=== PATIENT | male | born 1950 | race Caucasian/White ===

== ENCOUNTER 2017-11-18 09:39 | Inpatient (IN) | payer OTHER, MEDICARE ==
[2017-11-21] MEDS ORDERED: GABAPENTIN 300 MG CAP PO ONE (06:20)
[2017-11-21] MEDS ORDERED: ACETAMINOPHEN 500 MG TAB PO ONE (06:20)
[2017-11-21] MEDS ORDERED: ceFAZolin 2 GM/SWFI 2 GM/20 ML SYR IVP ONE (06:20)
[2017-11-21] MEDS ORDERED: LR 1,000 ML IV ONE (06:21)
[2017-11-21] MEDS ORDERED: MIDAZOLAM 2 MG/2 ML VIAL IVP ONE (06:57)
--- NOTE | 2017-11-21 06:57 | PDANEPAE ---
ANE History of Present Illness 67 yo crani ANE Past Medical History - Cardiovascular History Hx Hypertension: No Hx Arrhythmias: No Hx Chest Pain: No Hx Coronary Artery / Peripheral Vascular Disease: No Hx CHF / Valvular Disease: No Hx Palpitations: No - Pulmonary History Hx COPD: No Hx Asthma/Reactive Airway Disease: Yes Hx Recent Upper Respiratory Infection: No Hx Oxygen in Use at Home: No Hx Sleep Apnea: No Sleep Apnea Screening Result - Last Documented: Negative Pulmonary History Comment: HOARSE THROAT IF TALKS TO MUCH. MEDICATION INDUCED MILD ASTHMA. IN THE PAST NOT FOR QUITE AWHILE - Neurologic History Hx Cerebrovascular Accident: No Hx Seizures: No Hx Dementia: No - Endocrine History Hx Diabetes: No - Renal History Hx Renal Disorders: Yes Renal History Comment: DIFFULTY WITH URINATION - Liver History Hx Hepatic Disorders: No - Neurological & Psychiatric Hx Hx Neurological and Psychiatric Disorders: No - Cancer History Hx Cancer: Yes Cancer History Comment: SKIN MELANOMA - Congenital Disorder History Hx Congenital Disorders: No - GI History Hx Gastrointestinal Disorders: No - Other Health History Other Health History: RT SIDED TRIGEMINAL NEURALGIA - Chronic Pain History Chronic Pain: Yes (RT SIDED FACIAL NEURALGIA) - Surgical History Prior Surgeries: REMVL CYST NASAL X2 MOST RECENT. 06/07. OLEG KNEE SCOPES. REMVL MELANOMA BACK AREA. DENTAL SURG FOR REMVL DECAY. T&A ANE Review of Systems Review of Systems: - Exercise capacity METS (RN): 4 METS ANE Patient History - Allergies Allergies/Adverse Reactions: No Known Allergies Allergy (Unverified 10/25/17 10:51) - Home Medications Home medications: home medication list seen and reviewed Home Medications: Herbals/Supplements -Info Only 1 ea PO DAILY 10/25/17 [Last Taken 11/14/17] - NPO status NPO Status: no food or drink >8 hours NPO Since - Liquids (Date): 11/20/17 NPO Since - Solids (Date): 11/20/17 - Anes Hx Anes Hx: no prior problems - Smoking Hx Smoking Status: Former smoker ANE Labs/Vital Signs - Vital Signs Blood Pressure: 127/84 Heart Rate: 71 Respiratory Rate: 14 O2 Sat (%): 97 Height: 6 ft Weight: 98.43 kg ANE Physical Exam - Airway Neck exam: FROM Mallampati Score: Class 2 - Pulmonary Pulmonary: no respiratory distress - Cardiovascular Cardiovascular: regular rate and rhythym - ASA Status ASA Status: II ANE Anesthesia Plan Anesthesia Plan: general endotracheal anesthesia Lines/Monitors: arterial line
--- NOTE | 2017-11-21 07:01 | PDHPUP ---
History & Physical Update H&P update statement: This history and physical update is based on an assessment of the patient which was completed after admission or registration (within 24 hours), but prior to the surgery/procedure. H&P update: H&P reviewed & patient examined, no change in patient's condition since H&P completed
[2017-11-21] MEDS ORDERED: AVITENE POWDER 1 GM JAR TP ONE (07:08)
[2017-11-21] MEDS ORDERED: GENTAMICIN SULFATE 80 MG/2 ML VIAL ONE (07:08)
[2017-11-21] MEDS ORDERED: BUPIVACAINE 0.25% 30 ML SDV ONE (07:08)
[2017-11-21] MEDS ORDERED: MANNITOL 20% 100 GM/500 ML BAG IV ONE (07:08)
[2017-11-21] MEDS ORDERED: BACITRACIN ZINC 14.2 GM OINTTUBE TP ONE (07:08)
[2017-11-21] MEDS ORDERED: PROPOFOL/EMULSION 500 MG/50 ML BOTTLE IV ONE ×2 (07:09→08:54)
[2017-11-21] MEDS ORDERED: fentaNYL 100 MCG/2 ML INJ ONE ×3 (07:09→11:44)
[2017-11-21] MEDS ORDERED: REMIFENTANIL HCL 1 MG VIAL ONE ×2 (07:09→08:53)
[2017-11-21] MEDS ORDERED: THROMBIN (BOVINE) 20,000 UNIT VIAL TP ONE ×2 (07:22→09:19)
[2017-11-21] MEDS ORDERED: ACETAMINOPHEN 325 MG TAB PO PRN (10:02)
[2017-11-21] MEDS ORDERED: PROMETHAZINE HCL 25 MG/ML INJ IVP PRN (10:02)
[2017-11-21] MEDS ORDERED: LACTULOSE 20 GM/30 ML UDCUP PO PRN (10:02)
[2017-11-21] MEDS ORDERED: ONDANSETRON DISINTEGRATING 4 MG TAB PO PRN (10:02)
[2017-11-21] MEDS ORDERED: METHOCARBAMOL 750 MG TAB PO PRN (10:02)
[2017-11-21] MEDS ORDERED: MAGNESIUM HYDROXIDE 30 ML UDCUP PO PRN (10:02)
[2017-11-21] MEDS ORDERED: POLYETHYLENE GLYCOL 3350 17 GM PKT PO PRN (10:02)
[2017-11-21] MEDS ORDERED: BISACODYL 10 MG SUPP PR PRN (10:02)
[2017-11-21] MEDS ORDERED: ONDANSETRON 4 MG/2 ML VIAL IVP PRN ×2 (10:02→10:47)
[2017-11-21] MEDS ORDERED: PHENYLEPHRINE HCL 100 MCG/ML SYR ONE (10:24)
[2017-11-21] MEDS ORDERED: ROCURONIUM 100 MG/10 ML VIAL ONE (10:24)
[2017-11-21] MEDS ORDERED: DEXAMETHASONE 4 MG/ML VIAL ONE ×2 (10:24)
[2017-11-21] MEDS ORDERED: hydrALAZINE 20 MG/ML VIAL IVP PRN (10:32)
--- NOTE | 2017-11-21 10:32 | POSTOPPROG ---
Post Op Note Date of Operation: 11/21/17 Surgeon: Mc Kraus Emotional Support Teacher: Dr. Chris Linda Anesthesia: GET(General Endotracheal) Pre-op Diagnosis: Trigeminal Neuralgia Post-op Diagnosis: Same Procedure: Right sided microvascular decompression Findings: See dictated opeartive report Inf/Abcess present in the surg proc area at time of surgery?: No Depth: Organ Space EBL: 50-100 SOAP Progress Note Assessment/Plan: Assessment: Plan: 11/21/17 10:15 S: Patient in PACU. Still waking up from surgery O: NAD, VSS EOMI, PERRL CN II-XII grossly intact WILHELM X 4 Incision c/d/i A: 67 yo male sp right sided microvascular decompression for trigeminal neuralgia P: -Admit to SDU -Postop CT in am -Advance diet as tolerated -Tylenol for headaches, narcotics only if tylenol insufficient -Ibuprofen also ok -HOB elevated 30 degrees, watch for any signs of CSF leak -SBP 90-150 -Neuro Checks q2 if stable can be q4 overnight Objective: Vital Signs Temp Pulse Resp BP Pulse Ox 36.6 C 71 14 127/84 H 97 11/21/17 06:28 11/21/17 06:57 11/21/17 06:57 11/21/17 06:57 11/21/17 06:57
[2017-11-21] MEDS ORDERED: IBUPROFEN 200 MG TAB PO PRN (10:33)
[2017-11-21] MEDS ORDERED: fentaNYL 100 MCG/2 ML INJ IVP PRN (10:47)
[2017-11-21] MEDS ORDERED: NALOXONE HCL 0.4 MG/ML INJ IVP PRN (10:47)
[2017-11-21] MEDS ORDERED: HYDROmorphONE/DILAUDID 2 MG/ML INJ IVP PRN (10:47)
--- NOTE | 2017-11-21 11:21 | PDMN ---
Medical Necessity Medical necessity: [facility] IP only surgery; cpt 52446 Craniectomy/MVD; per op report & order 11/21/17
--- NOTE | 2017-11-21 13:42 | POSTANESTH ---
Post Anesthetic Evaluation Cardiovascular Status: Normal, Stable Respiratory Status: Normal, Stable Level of Consciousness/Mental Status: Can Participate in Eval Pain Control: Adequate, Prn Tx Ordered Nausea/Vomiting Control: Adequate, Prn Tx Ordered Complications Possibly Related to Anesthesia: None Noted
[2017-11-21] MEDS ORDERED: DEXAMETHASONE 4 MG TAB PO SCH (14:00)
[2017-11-21] MEDS: NS W/ 20 KCl/L 1,000 ML IV SCH ×2 (14:34→22:22)
[2017-11-21] MEDS: DEXAMETHASONE 2 MG TAB PO SCH ×2 (14:35→22:18)
--- NOTE | 2017-11-21 15:34 | GOP ---
[f rep st] OPERATIVE REPORT DATE OF OPERATION: 11/21/2017 SURGEON: Mc Kraus MD NEUROSURGEON: Mc Kraus MD. COMBINE MECHANIC: Chris Linda MD. ANESTHESIA: General endotracheal. All neurophysiologic monitoring remained stable throughout the case with only a small amount of irrit ation of the 7th nerve visualized. PREOPERATIVE DIAGNOSIS: Right-sided trigeminal neuralgia. POSTOPERATIVE DIAGNOSIS: Right-sided trigeminal neuralgia. PROCEDURE PERFORMED: 1. Right rectosigmoid craniotomy. 2. Microvascular decompression of the trigeminal nerve. 3. Use of the operative microscope. 4. Stealth stereotactic neuronavigation for craniotomy planning. FINDINGS: Successful microvascular decompression. SPECIMENS: There were no specimens. ESTIMATED BLOOD LOSS: 50 cc. INDICATIONS: The patient is a 67-year-old man who presents with several years of pain in the V1 and V2 distributions on the right side. The pain is episodic and lancinating with triggers of brushing h is teeth and drinking cold fluids. This was consistent with trigeminal neuralgia, but was not respon sive to medications. MRI reveals what appears to be a small branch of the superior cerebral artery l odged into the root entry zone of the trigeminal nerve. He presents today for a microvascular decomp ression. DESCRIPTION OF PROCEDURE: After an informed consent was obtained from the patient, the patient was b rought to the operating room and a formal time-out was performed, identifying the patient by name, wy dical record number, and date of . Preoperative antibiotics were given. The endotracheal tube was placed, and general endotracheal anesthesia was smoothly induced. The patient was given preopera tive Decadron and mannitol, and he was then turned to the left lateral decubitus position. The head was placed in Osei pins and was turned slightly toward the left side and in flexion, exposing the mastoid as the highest point. All appropriate pressure points were padded and checked, and all appr opriate leads were placed for intraoperative neurophysiologic monitoring including somatosensory-evok ed potentials and facial EMG as well as brainstem auditory-evoked potentials. The Stealth was then r egistered to the scalp and checked for accuracy using known surface landmarks. It was then used to l ocalize the very large transverse sigmoid junction on the right side. The sigmoid sinus on this side was clearly dominant as the other was diminutive and this was quite large, making the craniotomy matt ewhat difficult. The curvilinear incision was then marked in a fashion that would expose the transve rse sigmoid junction. At this point, the head was prepped and draped in the normal sterile fashion. 20 cc of 0.25% Marcain e with epinephrine was infiltrated in the skin for hemostasis. The skin incision was then made using a 10 blade. The subcutaneous tissues were dissected using monopolar electrocautery. The skin was u ndermined over the fascia, and a single flap was retracted anteriorly. The fascia was then opened an d this was from the bone and retracted anteriorly to identify the mastoid groove. An extre viola large mastoid emissary vein was visualized and waxed as this vein was nearly the same size as th e sigmoid sinus. Once the mastoid groove was localized, we localized the transverse sigmoid junction again using the Stealth, and a single bur hole was created using the rv service technician at the transverse si gmoid junction. The craniotome was then used to turn a small retrosigmoid craniotomy posteriorly and inferiorly, and the high-speed drill was used then to drill down the superior and anterior aspect of this exposing the edges of the transverse and sigmoid sinuses. The very large mastoid emissary vein did not make it possible to drill very much of the mastoid as this vein was essentially quite contin uous with the sigmoid sinus. Once we had the transverse sigmoid junction identified, a little more b one was drilled as this bone was nearly 1 cm thick, making exposure again difficult. Once all the bl eeding was controlled, a K-type incision was made in the dura with the flap toward the transverse sin us and a flap toward the sigmoid sinus. The dura was then flapped toward these structures and retrac ayla. Next, a small dissector was used to visualize the cisterna magna, which was punctured, draining CSF a nd allowing the cerebellum to relax. At this point, the operative microscope was brought on the anthony d and the remainder of the procedure was performed under high-power magnification. Starting anterior ly at the petrous ridge, the cerebellum was lightly retracted using the suction posteriorly. The kaitlin chnoid was opened. The jugular vein was identified with cranial nerves 9, 10, 11, and the arachnoid was then dissected more cephalad, visualizing cranial nerves 7 and 8. The arachnoid bands were very carefully dissected away from 7 and 8 to avoid any traction. This allowed us to go more superiorly w here the trigeminal nerve was visualized. The superior petrosal vein was visualized more superiorly and a large vein was coursing along the brainstem, which was mostly obscuring the root entry zone of the trigeminal nerve. The arachnoid bands were carefully dissected away and we were able to look abo ve and below the trigeminal nerve. Anteriorly in the root entry zone, the branch of the superior cer ebral artery was visualized which was compressing the nerve somewhat in the root entry zone. This ar cristina was carefully mobilized away from the venous structures and the nerve. A few small Ivalon pledg ets were then packed in between the artery and the nerve, completely moving the artery away from the entry zone of the nerve. There was no compression further on the trigeminal nerve, and the neurophys iologic monitoring remained completely stable. At this point, all points of the nerve and the craniotomy were inspected. There was no further bleed ing. The wound was filled with gentamicin irrigation. At this point, the dura was closed in a water tight fashion using interrupted 4-0 Nurolons. This was covered with Gelfoam and DuraSeal. The crani otomy flap was plated back in place using Synthes titanium plates and screws. The fascia was closed using interrupted 2-0 Vicryls. The deep dermis was closed using interrupted 2-0 Vicryls. The skin w as closed using a running 3-0 Prolene. Sterile dressings were placed. The patient was awakened in t operating room, was extubated, and was transferred to the PACU in stable condition. There were no operative complications. I was scrubbed and present for the entire procedure. All sponge and needl e counts were correct at the end of the case. FLUIDS AND URINE OUTPUT: Per the anesthesia record. DRAINS: There were no drains. /[id number]/MODL
[2017-11-21] MEDS: SENNOSIDES/DOCUSATE SODIUM TAB PO SCH (21:03)
[2017-11-21] MEDS: HYDROCODONE/APAP 10/325 TAB PO PRN (23:18)
[2017-11-22 05:29] VITALS: TEMP 98
[2017-11-22] MEDS: DEXAMETHASONE 2 MG TAB PO SCH (06:12)
[2017-11-22] MEDS: HYDROCODONE/APAP 10/325 TAB PO PRN (06:13)
--- NOTE | 2017-11-22 08:19 | NEUSURGPN ---
Date of Surgery: 11/21/17 Post Op Day: 1 Assessment/Plan: Assessment: 67 yo male sp right sided microvascular decompression for trigeminal neuralgia POD#1 Plan: -Postop CT stable -Right facial pain improved -Pain well controlled with [place] -Ibuprofen ok if needed -HOB elevated 30 degrees -Patient may discharge home following PT/OT/ST eval and recommendations -Patient seen by Dr Linda as well -Patient discussed with Dr Linda and Dr Kraus Subjective: Facial pain improved Objective: NAD, VSS EOMI, PERRL CN II-XII grossly intact WILHELM X 4 Incision c/d/i Neuro Check Frequency: per routine Urinary Catheter in Place: No Catheter Insertion Date: 11/21/17 - Physician Discussed Patient with : Efra Patient Seen by : Alexei Neurosurgery Physical Exam - Vitals, I&O, Labs I and O 11/21/17 11/22/17 11/23/17 05:59 05:59 05:59 Intake Total 8725 Output Total 2225 Balance 6500 Weight 101.1 kg Intake: Oral (ml) 5400 IV Intake (ml) 1808 IV Infused (ml) 1517 NS W/ 20 KCl/L 1,000 ml @ 1517 100 mls/hr IV CONT JOSHUA Rx#:[id number] Output: Urine (ml) 2225 Catheter 2225 Vital Signs Temp Pulse Resp BP Pulse Ox 36.6 C 72 15 135/72 H 98 11/22/17 05:25 11/22/17 05:25 11/22/17 05:25 11/22/17 05:25 11/22/17 05:25 ICD10 Worksheet Patient Problems: Problems Problem Status Onset Trigeminal neuralgia of right side of face Acute - ICD10 Problem Qualifiers (1) Trigeminal neuralgia of right side of face
[2017-11-22 08:42] VITALS: BP 113/73; PULSE 66; RESP 21; O2SAT 95
[2017-11-22] MEDS: SENNOSIDES/DOCUSATE SODIUM TAB PO SCH (09:42)
[2017-11-23] MEDS ORDERED: HEPARIN 5,000 UNIT/0.5 ML SYR SC SCH (09:00)
== END 2017-11-22 11:40 | disposition home or self-care (01) | DRG 27 ==
LOC: F3N 09:39 → UNDOADMIN 09:39 → F3N 11-21 05:49 → F2N 11-21 13:02
PROVIDERS: ADMIT Neurological Surgery; ATTEND Neurological Surgery
PROC: 00NK0ZZ Release Trigeminal Nerve, Open Approach (ICD-10-PCS; principal; 2017-11-21 07:15)
DX: G50.0 Trigeminal neuralgia (principal)
CPT/HCPCS: 92610-GN; 97161-GP; 97165-GO; C1713; G8978-GP-CH; G8979-GP-CH; G8980-GP-CH; G8984-GO-CI; G8985-GO-CI; G8986-GO-CI; G8996-GN-CH; G8997-GN-CH; G8998-GN-CH; J0171; J0690; J1100; J1580; J2250; J2370; J2704; J3010

== ENCOUNTER → 2017-11-18 | Outpatient (CLI) | payer OTHER, MEDICARE ==
[~2017-11-18] MED LIST: GADOBUTROL 10 ML VIAL IVP ONE
== END ==
LOC: FIMAGING 09:52
PROVIDERS: ATTEND Neurological Surgery
DX: G50.0 Trigeminal neuralgia (principal); J01.80 Other acute sinusitis
CPT/HCPCS: 70553; A9585